=== PATIENT | female | born 1995 | race Caucasian/White ===

== ENCOUNTER 2016-12-04 10:37 | Emergency (ER) | payer OTHER ==
[~2016-12-04] VITALS: Ht 160 cm; Wt 52.0 kg
[~2016-12-04 10:37] MED LIST: METH5SOL3 PO
--- NOTE | 2016-12-04 11:19 | PD ---
HPI Chief Complaint: Related Problem Time Seen by Provider: 10:43 Travel History International Travel<30 days: No Contact w/Intl Traveler<30days: No Traveled to known affect area: No History of Present Illness HPI 21-year-old female at approximately 9 weeks based on LMP of mid September who presents the emergency department with complaint of back pain. Patient states that she has had 2-3 days of low, crampy pain in the back. This radiates slightly to the abdomen. No urinary symptoms. No vaginal bleeding, leakage of fluid. Patient does not recall having this pain with her first prompting ER visit. PFSH Past Medical History Medical History: Denies Significant Hx Diminished Hearing: No Tetanus Vaccination: Unknown Influenza Vaccination: No ?: LMP: 09/26/2016 Social History Alcohol Use: No Tobacco Use: Yes Substance Use: No (DENIES) Allergies-Medications (Allergen,Severity, Reaction): Coded Allergies: Penicillin (Verified Allergy, Unknown, 12/04/16) Reported Meds & Prescriptions Reported Meds & Active Scripts Active Macrobid (Nitrofurantoin Monoh/Nitrofur Macro) 100 Mg Cap 100 Mg PO BID Reported Methadone HCl 5 Mg/5 Ml Jacque 80 Mg PO DAILY Review of Systems Except as stated in HPI: all other systems reviewed are Neg Physical Exam Narrative GENERAL: Well-appearing female in no acute distress SKIN: Focused skin assessment warm/dry. HEAD: Normocephalic. EYES: No scleral icterus. No injection or drainage. ENT: Mucous membranes pink and moist. NECK: Supple CARDIOVASCULAR: Regular rate and rhythm. RESPIRATORY: No accessory muscle use. GASTROINTESTINAL: Abdomen soft, non-tender, nondistended. MUSCULOSKELETAL: Normal gait NEUROLOGICAL: Awake and alert. Normal speech. PSYCHIATRIC: Appropriate mood and affect; insight and judgment normal. Data Data Orders Ed Poc Ultrasound (12/04/16 ) Urinalysis - C+S If Indicated (12/04/16 11:04) Labs Laboratory Tests Test 12/04/16 11:05 Urine Color YELLOW Urine Turbidity HAZY Urine pH 6.5 Urine Specific [place] 1.027 Urine Protein TRACE mg/dL Urine Glucose (UA) NEG mg/dL Urine Ketones NEG mg/dL Urine Occult Blood NEG Urine Nitrite NEG Urine Bilirubin NEG Urine Urobilinogen LESS THAN 2.0 MG/DL Urine Leukocyte Esterase NEG Urine RBC 2 /hpf Urine WBC 2 /hpf Urine Squamous Epithelial 25 /hpf Cells Urine Bacteria OCC /hpf Urine Mucus FEW /lpf Microscopic Urinalysis Comment CULT NOT INDICATED MDM Medical Decision Making Medical Screen Exam Complete: Yes Emergency Medical Condition: Yes Medical Record Reviewed: Yes Differential Diagnosis 21-year-old here with complaint of low crampy back pain, proximal vein 9 weeks . Differential includes , ectopic , threatened AB, missed AB, UTI, low back pain. Narrative Course Bedside ultrasound shows IUP with heart rate measuring 8 weeks 0 days. Patient reassured. Urinalysis showed bacteria. We'll treat for home Procedures Procedure Narrative Emergency Department Pelvic ultrasound was performed with patient consent. The curvilinear probe was used in the transverse and sagittal views within the suprapubic region revealing an intrauterine . heart rate was 180s. See this measures 8 weeks 0 days by crown rump length. Diagnosis Primary Impression: Bacteria in urine Additional Impression: Low back pain Qualified Code: M54.5 - Bilateral low back pain without sciatica, unspecified chronicity Referrals: Boiler Out call for appointment Additional Instructions: Antibiotics as prescribed. Follow-up with SLEEP MANAGER to establish care for this . Med/Other Pt SpecificInfo: Prescription(s) given Scripts Nitrofurantoin Monohydrate Macrocrystals (Macrobid)100 Mg [id number] Mg PO BID #14 CAP Ref 0 Prov:Kae Valencia MD 12/04/16 Disposition: 01 DISCHARGE HOME Condition: Stable Kae Valencia MD December 04, 2016 11:19 Kae Valencia MD December 04, 2016 11:19
[2016-12-04 11:39] LABS: BACTERIA, URINE OCC /hpf; BLOOD, URINE NEG (NEG); COMMENT (UR) CULT NOT INDICATED; CULTURE IF INDICATED CULT NOT INDICATED; GLUCOSE,URINE NEG (NEG); KETONE, URINE NEG (NEG); MUCUS URINE FEW /lpf (OCC); NITRITE,URINE NEG (NEG); PH, URINE 6.5 (5.0-8.5); SQUAMOUS EPITHELIAL CELL URINE 25 /hpf (0-5); URINE COLOR YELLOW (YELLW/STRAW)
[2016-12-04] MEDS ORDERED: MACR100C2 PO (11:45)
== END 2016-12-04 11:50 | disposition home or self-care (01) ==
LOC: NEPD 10:37
DX: O26.891 Other specified pregnancy related conditions, first trimester (principal); O99.331 Smoking (tobacco) complicating pregnancy, first trimester; M54.5 Low back pain; Z3A.09 9 weeks gestation of pregnancy
CPT/HCPCS: 81001; 99283

== ENCOUNTER 2017-01-28 09:35 | Emergency (ER) | payer OTHER ==
[~2017-01-28 09:35] MED LIST changes: +MACR100C2 PO
[2017-01-28 09:36] VITALS: BP 109/90; PULSE 64; RESP 15; TEMP 97.8; O2SAT 100
[2017-01-28 10:45] VITALS: TEMP 97.9
[2017-01-28] MEDS ORDERED: PYRI25TA2 PO (11:22)
--- NOTE | 2017-01-28 11:22 | PD ---
HPI Chief Complaint cramping Date Seen: Jan 28, 2017 Time Seen: 10:45 (Fransico Hooks MD R1) Travel History International Travel<30 Days: No Contact w/Intl Traveler<30Days: No Known Affected Area: No (Fransico Hooks MD R1) History of Present Illness HPI 21 YO with LMP September 26 presents with 4 weeks of cramping and reported daily nausea with emesis. Pt has had no/little PNC. Previous c/b preeclampsia. Pt recently began smoking again 1 pack every 2/3 days. Denies CP, SOB, vaginal bleeding/discharge, dysuria and DVT pain. Para: 1 : 2 Last Menstrual Period: Sep 26, 2016 (Fransico Hooks MD) History Past Medical History Medical History: Denies Significant Hx (Fransico Hooks MD) Obstetric History Obstetric History preeclampsia in 1st (Fransico Hooks MD) Past Surgical History Surgical History: No Previous Surgery (Fransico Hooks MD) Family History Family History: Negative (Fransico Hooks MD) Social History Alcohol Use: No Tobacco Use: Yes (recently re-started at one pack every 2-3 days) Substance Abuse: No (admitted to nurse she used drugs when 16 YO) (Fransico Hooks MD R1) Allergies-Medications (Allergen,Severity, Reaction): Coded Allergies: Penicillin (Verified Allergy, Severe, Swelling, 01/28/17) states her throat swells Home Meds Active Scripts Pyridoxine 25 Mg Tab25 Mg PO QID PRN (NAUSEA OR VOMITING) #30 TAB Ref 0 Prov:Fransico Hooks MD R1 01/28/17 Nitrofurantoin Monohydrate Macrocrystals (Macrobid)100 Mg [id number] Mg PO BID #14 CAP Ref 0 Prov:Kae Valencia MD 12/04/16 Reported Medications Methadone Hcl (Methadone HCl)5 Mg/5 Ml Sol80 Mg PO DAILY 02/15/15 Review of Systems Except as stated in HPI: all other systems reviewed are Neg General / Constitutional: No: Fever, Weight Gain, Weight Loss, Chills, Other ( Fransico Hooks MD) Physical Exam Vital Signs Date Time Temp Pulse Resp B/P Pulse Ox O2 Delivery O2 Flow Rate FiO2 01/28/17 09:36 97.8 64 15 109/90 100 Narrative GENERAL: Well-nourished, well-developed patient. SKIN: Warm and dry. HEAD: Normocephalic and atraumatic. EYES: No scleral icterus. No injection or drainage. ENT: No nasal drainage noted. Mucous membranes pink. Airway patent. NECK: Supple, trachea midline. No JVD. CARDIOVASCULAR: Regular rate and rhythm without murmurs, gallops, or rubs. RESPIRATORY: Breath sounds equal bilaterally. No accessory muscle use. ABDOMEN/GI: Abdomen soft, non-tender, bowel sounds present, no rebound, no guarding Gravid to [17] weeks size Fundal Height: [16.5] GENITOURINARY: External Genitalia: intact and normal in appearance Speculum exam revealed a closed cervix w/o bleeding and scant white milky discharge FHT's: 150s EXTREMITIES: No cyanosis or edema. NEUROLOGICAL: Awake and alert. Motor and sensory grossly within normal limits. Five out of 5 muscle strength in all muscle groups. Normal speech. (Fransico Hooks MD R1) Data Data Orders Vital Signs (Adult) .ON ADMISSION (01/28/17 10:50) ^ Labor Status (01/28/17 10:50) Urinalysis - C+S If Indicated (01/28/17 10:50) Ob/Psych Drug Screen, Urine (01/28/17 10:50) Rubella Immune Status (01/28/17 10:50) Hepatitis Profile (01/28/17 10:50) Rapid Plasma Regin (Rpr) W Ttr (01/28/17 10:50) Type And Screen (01/28/17 10:50) Complete Blood Count With Diff (01/28/17 10:50) Hiv Antibody Screen (01/28/17 10:50) Us Ob Pelvis >14 Wks Fetus (01/28/17 ) (Fransico Hooks MD R1) MDM Medical Record Reviewed: Yes Narrative Course / MDM 24 YO at 17 weeks gestation and prior gestational hx of preeclampsia presents with abdominal cramping and nausea and FHTs in 150s. - OB US - screening - Encourage freq small meals and Samreen B6 for nausea and vomiting - Tylenol for cramping pain (Fransico Hooks MD R1) Diagnosis Diagnosis: Primary Impression: Nausea and vomiting during prior to 22 weeks gestation Disposition: 01 DISCHARGE HOME Condition: Good Scripts Pyridoxine 25 Mg Tab25 Mg PO QID PRN (NAUSEA OR VOMITING) #30 TAB Ref 0 Prov:Fransico Hooks MD R1 01/28/17 Collaborating MD Comments Agree with assessment and plan of care. (Namita Torres MD) Fransico Hooks MD R1 Jan 28, 2017 11:22 Namita Torres MD Jan 29, 2017 07:47
[2017-01-28 12:27] LABS: BACTERIA, URINE OCC /hpf; BLOOD, URINE NEG (NEG); COMMENT (UR) CULT NOT INDICATED; CULTURE IF INDICATED CULT NOT INDICATED; GLUCOSE,URINE NEG (NEG); KETONE, URINE NEG (NEG); MUCUS URINE FEW /lpf (OCC); NITRITE,URINE NEG (NEG); SQUAMOUS EPITHELIAL CELL URINE 4 /hpf (0-5); URINE COLOR LIGHT-YELLOW (YELLW/STRAW)
[2017-01-28 12:41] LABS: AMPHETAMINE, URINE NEG (NEG); BARBITURATES, URINE NEG (NEG); COCAINE, URINE NEG (NEG)
[2017-01-31 09:52] LABS: BATH SALTS (MDPV) UR NEG (NEG); ECSTASY (MDMA) UR NEG (NEG); GABAPENTIN UR NEG (NEG); HEROIN (6-ACETYLMORPHINE) UR NEG (NEG); HYDROMORPHONE U NEG (NEG); K2 SPICE UR NEG (NEG); OBMETHADONE UR NEG (NEG); OXYCODONE (PERCODAN) NEG (NEG); PHENCYCLIDINE URINE NEG (NEG)
== END 2017-01-28 12:03 | disposition home or self-care (01) ==
LOC: HOBED 09:35
DX: O21.9 Vomiting of pregnancy, unspecified (principal); O99.332 Smoking (tobacco) complicating pregnancy, second trimester; F17.210 Nicotine dependence, cigarettes, uncomplicated; Z3A.17 17 weeks gestation of pregnancy; Z79.899 Other long term (current) drug therapy
CPT/HCPCS: 36415; 76805; 80307; 81001; 99284; G0481

== ENCOUNTER 2018-01-06 18:02 | Emergency (ER) | payer OTHER ==
[~2018-01-06] VITALS: Ht 160 cm; Wt 55.0 kg
[~2018-01-06 18:02] MED LIST changes: +PYRI25TA2 PO
[2018-01-06 18:07] VITALS: BP 147/79; PULSE 115; RESP 18; TEMP 99; O2SAT 99
--- NOTE | 2018-01-06 18:18 | PD ---
HPI Chief Complaint: Psychiatric Symptoms Time Seen by Provider: 18:12 Travel History International Travel<30 days: No Contact w/Intl Traveler<30days: No Traveled to known affect area: No History of Present Illness HPI 22 YO F presents to the ED under Phillips Act for psychiatric evaluation. According to the BA the patient made suicidal threats on the Internet. Screen shots support this allegation. On presentation the patient is very anxious appearing. She is tearful. She denies SI or HI. She states that she is going through a custody zaragoza with her ex and made those statements in an attempt to hurt him. She denies previous psychiatric diagnosis, suicide attempt or psychiatric hospitalization. She denies somatic complaints. LMP 6/. Denies risk of . She denies headache, CP, cough, abdominal pain, N/V, dysuria , back pain. She endorses occasional alcohol use. She denies illicit drug use. She denies cigarette smoking. PFSH Past Medical History Diminished Hearing: No ?: Not Social History Alcohol Use: No Tobacco Use: Yes (recently re-started at one pack every 2-3 days) Substance Use: No (DENIES) Allergies-Medications (Allergen,Severity, Reaction): Coded Allergies: penicillin G (Unverified Allergy, Severe, Swelling, 02/26/17) states her throat swells Reported Meds & Prescriptions Reported Meds & Active Scripts Active Pyridoxine (Pyridoxine HCl) 25 Mg Tab 25 Mg PO QID PRN Macrobid (Nitrofurantoin Monoh/Nitrofur Macro) 100 Mg Cap 100 Mg PO BID Reported Methadone HCl 5 Mg/5 Ml Jacque 80 Mg PO DAILY Review of Systems Except as stated in HPI: all other systems reviewed are Neg Physical Exam Narrative GENERAL: Well-nourished, well-developed white female in no acute distress. PSYCH: Anxious, tearful. SKIN: Focused skin assessment warm/dry. Multiple small wounds of the skin noted. No signs of infection. HEAD: Normocephalic. EYES: No scleral icterus. No injection or drainage. NECK: Supple, trachea midline. No JVD or lymphadenopathy. CARDIOVASCULAR: Regular rate and rhythm without murmurs, gallops, or rubs. RESPIRATORY: Breath sounds clear and equal bilaterally. No accessory muscle use. GASTROINTESTINAL: Abdomen soft, non-tender, nondistended. Active bowel sounds. MUSCULOSKELETAL: No cyanosis, or edema. Walks with normal gait. BACK: Nontender without obvious deformity. No CVA tenderness. Data Data Last Documented VS Vital Signs Date Time Temp Pulse Resp B/P (MAP) Pulse Ox O2 Delivery O2 Flow Rate FiO2 01/06/18 18:07 99.0 115 18 147/79 (101) 99 Orders Orders Complete Blood Count With Diff (01/06/18 18:55) Comprehensive Metabolic Panel (01/06/18 18:55) Thyroid Stimulating Hormone (01/06/18 18:55) Urinalysis - C+S If Indicated (01/06/18 18:55) Ed Urine Pregnancytest Poc (01/06/18 18:55) Psych Screen (01/06/18 18:55) Drug Screen, Random Urine (01/06/18 18:55) Alcohol (Ethanol) (01/06/18 18:55) Diet Regular Basic (01/06/18 Dinner) MDM Medical Decision Making Medical Screen Exam Complete: Yes Emergency Medical Condition: Yes Differential Diagnosis Adjustment disorder versus anxiety versus bipolar versus depression versus dementia versus electrolyte disorder versus malingering versus mood disorder versus ODD versus psychosis versus PTSD versus schizophrenia versus schizoaffective disorder versus substance-induced mood disorder versus other Narrative Course 22-year-old female presents the ED under Phillips act for psychiatric evaluation. Per the PA the patient made suicidal and homicidal threats on the Internet against herself and her with whom she is in embroiled in a child custody zaragoza. On exam the patient is anxious, somewhat pressured speech. Tachycardic and hypertensive on presentation. Exam is reassuring. Basic lab work ordered and pending. Patient signed out to Dr. Carey at end of shift. Please see her note for disposition. Rosmery So Jan 06, 2018 18:18
--- NOTE | 2018-01-06 19:06 | PD ---
Physical Exam Narrative I, Dr. Carey, have reviewed the advance practice practitioner's documentation and am in agreement, met with the patient face to face, made the diagnosis, and the medical decision making was done by me. *My assessment and Findings: Anxiety vs. depression vs. anger issues 22yo F was brought in as Phillips Act because she texted her ex boyfriend and said she was going to kill herself and him. Pt said she was trying to make him feel bad and she is undergoing a custody zaragoza. Although pt denies any suicidal ideation now, pt is very anxious appearing and feel that pt may need to be here to calm down and be evaluated by psych since she seems emotionally labile. Labs reviewed, mild leukocytosis at 13.2. H/H normal. TSH low at 0.162. Will add free T3. CMP unremarkable. Utox positive opiates, cocaine, and cannabinoids. Alcohol negative. UA showed occasional bacteria but squamous is 25. Culture not indicated. Pt has no urinary complaints. Free T3 normal. negative. Pt is medically clear for psych evaluation. Data Data Last Documented VS Vital Signs Date Time Temp Pulse Resp B/P (MAP) Pulse Ox O2 Delivery O2 Flow Rate FiO2 01/07/18 11:22 01/07/18 06:21 86 16 99 Room Air 01/06/18 18:07 99.0 Orders Orders Complete Blood Count With Diff (01/06/18 18:55) Comprehensive Metabolic Panel (01/06/18 18:55) Thyroid Stimulating Hormone (01/06/18 18:55) Urinalysis - C+S If Indicated (01/06/18 18:55) Ed Urine Pregnancytest Poc (01/06/18 18:55) Psych Screen (01/06/18 18:55) Drug Screen, Random Urine (01/06/18 18:55) Alcohol (Ethanol) (01/06/18 18:55) Diet Regular Basic (01/06/18 Dinner) Free T3 (01/06/18 20:55) Bhcg Screen Qualitative (01/06/18 20:55) Diet Regular Basic (01/07/18 Breakfast) Labs Laboratory Tests Test 01/06/18 19:15 White Blood Count 13.2 TH/MM3 Red Blood Count 5.01 MIL/MM3 Hemoglobin 14.1 GM/DL Hematocrit 42.2 % Mean Corpuscular Volume 84.2 FL Mean Corpuscular Hemoglobin 28.1 PG Mean Corpuscular Hemoglobin Concent 33.4 % Red Cell Distribution Width 12.9 % Platelet Count 205 TH/MM3 Mean Platelet Volume 11.3 FL Neutrophils (%) (Auto) 75.5 % Lymphocytes (%) (Auto) 14.0 % Monocytes (%) (Auto) 9.8 % Eosinophils (%) (Auto) 0.4 % Basophils (%) (Auto) 0.3 % Neutrophils # (Auto) 10.0 TH/MM3 Lymphocytes # (Auto) 1.9 TH/MM3 Monocytes # (Auto) 1.3 TH/MM3 Eosinophils # (Auto) 0.1 TH/MM3 Basophils # (Auto) 0.0 TH/MM3 CBC Comment DIFF FINAL Differential Comment Urine Color Carine Urine Turbidity CLOUDY Urine pH 6.0 Urine Specific [place] 1.024 Urine Protein 30 mg/dL Urine Glucose (UA) NEG mg/dL Urine Ketones 20 mg/dL Urine Occult Blood NEG Urine Nitrite NEG Urine Bilirubin NEG Urine Urobilinogen 4.0 OR GREATER mg/dL Urine Leukocyte Esterase TRACE Urine RBC 3 /hpf Urine WBC 5 /hpf Urine Squamous Epithelial Cells 25 /hpf Urine Calcium Oxalate Crystals RARE /hpf Urine Bacteria OCC /hpf Urine Mucus MOD /lpf Microscopic Urinalysis Comment CULT NOT INDICATED Blood Urea Nitrogen 7 MG/DL Creatinine 0.81 MG/DL Random Glucose 88 MG/DL Total Protein 8.2 GM/DL Albumin 4.4 GM/DL Calcium Level 9.5 MG/DL Alkaline Phosphatase 68 U/L Aspartate Amino Transf (AST/SGOT) 53 U/L Alanine Aminotransferase (ALT/SGPT) 50 U/L Total Bilirubin 0.7 MG/DL Sodium Level 137 MEQ/L Potassium Level 3.5 MEQ/L Chloride Level 102 MEQ/L Carbon Dioxide Level 25.3 MEQ/L Anion Gap 10 MEQ/L Estimat Glomerular Filtration Rate 88 ML/MIN Free Triiodothyronine (T3) pg/dL 3.80 PG/ML Thyroid Stimulating Hormone 3rd Gen 0.162 uIU/ML Beta HCG, Qualitative LESS THAN 1 MIU/ML Urine Opiates Screen POS Urine Barbiturates Screen NEG Urine Amphetamines Screen NEG Urine Benzodiazepines Screen NEG Urine Cocaine Screen POS Urine Cannabinoids Screen POS Ethyl Alcohol Level LESS THAN 3 MG/DL [facility] Supervised Visit with CHASE: Yes Diagnosis Primary Impression: Suicidal ideation Mary Carey DO Jan 06, 2018 19:06
[2018-01-06 20:10] LABS: BASOPHIL % 0.3 % (0.0-2.0); EOSINOPHIL # 0.1 TH/MM3 (0-0.4); EOSINOPHIL % 0.4 % (0.0-4.0); HEMATOCRIT 42.2 % (35.0-46.0); HEMOGLOBIN 14.1 GM/DL (11.6-15.3); LYMPHOCYTE # 1.9 TH/MM3 (1.0-4.8); MEAN CELL VOLUME 84.2 FL (80.0-100.0); MEAN CORPUSCULAR HEMOGLOBIN 28.1 PG (27.0-34.0); MEAN CORPUSCULAR HGB CONC 33.4 % (32.0-36.0); MEAN PLATELET VOLUME 11.3 FL (7.0-11.0); MONO % 9.8 % (0.0-8.0); MONOCYTE # 1.3 TH/MM3 (0-0.9); NEUT % 75.5 % (16.0-70.0); PLATELET COUNT 205 TH/MM3 (150-450); RED BLOOD COUNT 5.01 MIL/MM3 (4.00-5.30); RED CELL DISTRIBUTION WIDTH 12.9 % (11.6-17.2); WHITE BLOOD COUNT 13.2 TH/MM3 (4.0-11.0)
[2018-01-06 20:23] LABS: ALBUMIN 4.4 GM/DL (3.4-5.0); AST (GOT) 53 U/L (15-37); BICARBONATE 25.3 MEQ/L (21.0-32.0); BLOOD UREA NITROGEN 7 MG/DL (7-18); CALCIUM 9.5 MG/DL (8.5-10.1); CHLORIDE 102 MEQ/L (98-107); CREATININE 0.81 MG/DL (0.50-1.00); GLOMERULAR FILTRATION RATE 88 ML/MIN (>89); GLUCOSE,RANDOM 88 MG/DL (74-106); SODIUM (NA) 137 MEQ/L (136-145)
[2018-01-06 20:26] LABS: BACTERIA, URINE OCC /hpf; BILIRUBIN, URINE NEG (NEG); BLOOD, URINE NEG (NEG); CALCIUM OXALATE CRYSTALS,URINE RARE /hpf; GLUCOSE,URINE NEG (NEG); KETONE, URINE 20 mg/dL (NEG); MUCUS URINE MOD /lpf (OCC); NITRITE,URINE NEG (NEG); SQUAMOUS EPITHELIAL CELL URINE 25 /hpf (0-5); URINE COLOR Amber (YELLW/STRAW); URINE LEUKOCYTE ESTERASE TRACE (NEG)
[2018-01-06 20:35] LABS: ALKALINE PHOSPHATASE 68 U/L (45-117); ALT (GPT) 50 U/L (10-53); TOTAL BILIRUBIN ADULT 0.7 MG/DL (0.2-1.0); TOTAL PROTEIN 8.2 GM/DL (6.4-8.2)
[2018-01-06 22:22] VITALS: BP 103/58; PULSE 84; RESP 16; O2SAT 99
[2018-01-07 06:21] VITALS: BP 102/60; PULSE 86; RESP 16; O2SAT 99
--- NOTE | 2018-01-07 11:15 | PD ---
History of Present Illness Chief Complaint: Psychiatric Symptoms Time Seen by Provider: 11:00 Travel History International Travel<30 Days: No Contact w/Intl Traveler<30days: No Known affected area: No Legal Status Legal Status: Phillips Act Phillips Act Signed By: Alma Morales History of Present Illness: History of Present Illness HPI 22 year old , female with no reported psychiatric history presents to the ED under Phillips Act for psychiatric evaluation. According to the BA the patient's ex-boyfriend called the police to report Facebook messages posted by the patient that eluded to her being suicidal. The responding officer took shots of the messages and according to the officer the patient made several threats to kill herself and harm the receiving green party. The patient did not make any attempts to harm herself. She was monitored in secure environment and did not present any suicidality or behavioral concerns. EMR. No previous contact with [facility] psychiatry. Current toxicology is positive for opiates, cocaine adn cannabinoids. She denies that she uses these substances on a daily basis but rather " I green party sometimes". Patient is seen. Alert, oriented, engaging. Anxious. She is worried because she has to be in court for a custody hearing later today. Speech is clear, logical, normal rate and tone. No psychosis, no andrew or hypomania. Denies any suicidal or homicidal ideation, intent or plan. States that she sent the messages to her ex because "she wanted to hurt his feelings. It was a way of getting back at him since I know he still loves me". Denies that she had any intent of harming herself. Patient denies any previous psychiatric treatment. PFSH Past Medical History Medical History: Denies Significant Hx Diminished Hearing: No ?: Not Past Surgical History Surgical History: No Previous Surgery Psychiatric History Psychiatric History Hx Psychiatric Treatment: denies any History of Inpatient Treatment: No Guns or firearms in home: No Social History female. Has 2 children. Currently unemployed. Hx Alcohol Use: No Hx Tobacco Use: Yes (recently re-started at one pack every 2-3 days) Hx Substance Use: Yes Substance Use Type: Marijuana, Cocaine, Synth Opiates-Pain Pills Hx of Substance Use Treatment: No Family Psychiatric History Negative. Allergies-Medications (Allergen,Severity, Reaction): Coded Allergies: penicillin G (Unverified Allergy, Severe, Swelling, 02/26/17) states her throat swells Reported Meds & Prescriptions Reported Meds & Active Scripts Active Pyridoxine (Pyridoxine HCl) 25 Mg Tab 25 Mg PO QID PRN Macrobid (Nitrofurantoin Monoh/Nitrofur Macro) 100 Mg Cap 100 Mg PO BID Reported Methadone HCl 5 Mg/5 Ml Jacque 80 Mg PO DAILY Review of Systems Psychiatric: COMPLAINS OF: Anxiety Except as stated in HPI: all other systems reviewed are Neg Mental Status Examination Appearance: Appropriate, Disheveled Consciousness: Alert Orientation: x4 Motor Activity: Normal gait Speech: Unremarkable Language: Adequate Fund of Knowledge: Adequate Attention and Concentration: Adequate Memory: Unremarkable Mood: Appropriate Affect: Appropriate Thought Process & Associations: Intact, Logical, Goal directed Thought Content: Appropriate Hallucination Type: None Delusion Type: None Suicidal Ideation: No Suicidal Plan: No Suicidal Intention: No Homicidal Ideation: No Homicidal Plan: No Homicidal Intention: No Insight: Poor Judgment: Impulsive MDM Medical Decision Making Medical Record Reviewed: Yes Assessment/Plan History of Present Illness HPI 22 year old , female with no reported psychiatric history presents to the ED under Phillips Act for psychiatric evaluation. According to the BA the patient's ex-boyfriend called the police to report Facebook messages posted by the patient that eluded to her being suicidal. The responding officer took shots of the messages and according to the officer the patient made several threats to kill herself and harm the receiving green party. The patient did not make any attempts to harm herself. She was monitored in secure environment and did not present any suicidality or behavioral concerns. Patient admits to having sent the messages in order to get a reaction or to hurt her boyfriend and did not expect that she would be placed under a BA. She is requesting to be dischargde as she has a custody hearing later today. She presents no evidence of unstable mental illness. The BA is lifted. psychiatrically cleared for discharge from the ED. Orders Orders Complete Blood Count With Diff (01/06/18 18:55) Comprehensive Metabolic Panel (01/06/18 18:55) Thyroid Stimulating Hormone (01/06/18 18:55) Urinalysis - C+S If Indicated (01/06/18 18:55) Ed Urine Pregnancytest Poc (01/06/18 18:55) Psych Screen (01/06/18 18:55) Drug Screen, Random Urine (01/06/18 18:55) Alcohol (Ethanol) (01/06/18 18:55) Diet Regular Basic (01/06/18 Dinner) Free T3 (01/06/18 20:55) Bhcg Screen Qualitative (01/06/18 20:55) Diet Regular Basic (01/07/18 Breakfast) Results Vital Signs Date Time Temp Pulse Resp B/P (MAP) Pulse Ox O2 Delivery O2 Flow Rate FiO2 01/07/18 06:21 86 16 102/60 (74) 99 Room Air 01/06/18 22:22 84 16 103/58 (73) 99 Room Air 01/06/18 18:07 99.0 115 18 147/79 (101) 99 Laboratory Tests Test 01/06/18 19:15 White Blood Count 13.2 Red Blood Count 5.01 Hemoglobin 14.1 Hematocrit 42.2 Mean Corpuscular Volume 84.2 Mean Corpuscular Hemoglobin 28.1 Mean Corpuscular Hemoglobin Concent 33.4 Red Cell Distribution Width 12.9 Platelet Count 205 Mean Platelet Volume 11.3 Neutrophils (%) (Auto) 75.5 Lymphocytes (%) (Auto) 14.0 Monocytes (%) (Auto) 9.8 Eosinophils (%) (Auto) 0.4 Basophils (%) (Auto) 0.3 Neutrophils # (Auto) 10.0 Lymphocytes # (Auto) 1.9 Monocytes # (Auto) 1.3 Eosinophils # (Auto) 0.1 Basophils # (Auto) 0.0 CBC Comment DIFF FINAL Differential Comment Urine Color Carine Urine Turbidity CLOUDY Urine pH 6.0 Urine Specific [place] 1.024 Urine Protein 30 Urine Glucose (UA) NEG Urine Ketones 20 Urine Occult Blood NEG Urine Nitrite NEG Urine Bilirubin NEG Urine Urobilinogen 4.0 OR GREATER Urine Leukocyte Esterase TRACE Urine RBC 3 Urine WBC 5 Urine Squamous Epithelial Cells 25 Urine Calcium Oxalate Crystals RARE Urine Bacteria OCC Urine Mucus MOD Microscopic Urinalysis Comment CULT NOT INDICATED Blood Urea Nitrogen 7 Creatinine 0.81 Random Glucose 88 Total Protein 8.2 Albumin 4.4 Calcium Level 9.5 Alkaline Phosphatase 68 Aspartate Amino Transf (AST/SGOT) 53 Alanine Aminotransferase (ALT/SGPT) 50 Total Bilirubin 0.7 Sodium Level 137 Potassium Level 3.5 Chloride Level 102 Carbon Dioxide Level 25.3 Anion Gap 10 Estimat Glomerular Filtration Rate 88 Free Triiodothyronine (T3) pg/dL 3.80 Thyroid Stimulating Hormone 3rd Gen 0.162 Beta HCG, Qualitative LESS THAN 1 Urine Opiates Screen POS Urine Barbiturates Screen NEG Urine Amphetamines Screen NEG Urine Benzodiazepines Screen NEG Urine Cocaine Screen POS Urine Cannabinoids Screen POS Ethyl Alcohol Level LESS THAN 3 Diagnosis Primary Impression: Cocaine abuse Additional Impressions: Opiate abuse, continuous Cannabis abuse Ruled Out: Suicidal ideation Psychiatrically Cleared: Yes Med/ Other Pt Specific Info: No Meds Exist/No RX given Disposition: 01 DISCHARGE HOME Condition: Stable Problem Qualifiers Awilda Santos Jan 07, 2018 11:15
== END 2018-01-07 11:49 | disposition home or self-care (01) ==
LOC: NEPD 18:02 → NEPJ 01-07 11:49
DX: F14.10 Cocaine abuse, uncomplicated (principal); F11.10 Opioid abuse, uncomplicated; F12.10 Cannabis abuse, uncomplicated; F17.200 Nicotine dependence, unspecified, uncomplicated; R00.0 Tachycardia, unspecified; Z79.899 Other long term (current) drug therapy
CPT/HCPCS: 80053; 80307; 81001; 84443; 84481; 84703; 85025; 99284

== ENCOUNTER 2018-04-11 22:46 | Inpatient (IN) ==
[2018-04-12] MEDS ORDERED: Dexamethasone Inj 20 MG/5 ML Vial IV.PUSH ONE (00:17)
[2018-04-12] MEDS ORDERED: Clindamycin 900 mg/NS Premix 900 MG/50 ML PIGGYBACK IV.SIG ONE (00:22)
--- NOTE | 2018-04-12 00:50 | ED ---
HPI General Chief complaint: Respiratory Symptoms Stated complaint: sore throat Time Seen by Provider: 04/12/18 00:13 History of Present Illness HPI narrative: her throat is swelling and she is having painful swallowing as well as some difficulty with breathing.Patient 23-year-old female here 2 days ago and told she had an early appendicitis and was started on Keflex and then discharged. According to the note the patient was here for sore throat as well as abdominal pain. She had a CT abdomen pelvis as well as an ultrasound which were negative, she was diagnosed with streptococcal pharyngitis and started on Keflex she has a penicillin allergy. Patient states today she think she is having allergic reaction to the penicillin because no fevers no cough no congestion. Symptoms been severe, for the past few days, gradually worsening, associated signs symptoms in context as above. Related Data Home Medications Medication Instructions Recorded Confirmed sertraline [Zoloft] 50 mg PO DAILY 04/10/18 04/12/18 Previous Rx's Medication Instructions Recorded cephalexin [Keflex] 500 mg PO Q12H 10 Days #20 cap 04/10/18 Allergies Allergy/AdvReac Type Severity Reaction Status Date / Time penicillin G Allergy Severe Swelling Verified 04/11/18 23:19 Review of Systems ROS: all other systems reviewed are negative [facility] Medical History Medical History Patient denies medical problems (Acute) Surgical History Surgical History No history of previous surgery (Acute) Social History Social History Substance History: No History of Abuse Smoking Status: Current every day smoker Tobacco Type: Cigarettes How Often Do You Have a Drink Containing Alcohol: Never Recent Travel in [facility] within the Last 8 Weeks: No Recent Out of Country Travel within the Last 8 Weeks: No Immunization History Tetanus Immunization: >5 Years Hx Influenza Vaccine This Season: No Exam Narrative Exam Narrative: GENERAL: Well-developed well-nourished female appears very anxious, clearing her throat aggressively and yielding clear white sputum. SKIN: Focused skin assessment warm/dry. HEAD: Atraumatic. Normocephalic. EYES: Pupils equal and round. No scleral icterus. No injection or drainage. ENT: No nasal bleeding or discharge. Mucous membranes pink and moist. TMs are clear bilaterally, there is significant swelling about the left tonsil consistent with a peritonsillar abscess, uvula is deviated right, the right tonsil is visualized and is 3+ purulent drainage but no obvious abscess. Her airway certainly is small but she is able to swallow with some pain. She does have some voice change which could be consistent with hot potato voice. NECK: Trachea midline. No JVD. CARDIOVASCULAR: Regular rate and rhythm. No murmur appreciated. RESPIRATORY: No accessory muscle use. Clear to auscultation. Breath sounds equal bilaterally. GASTROINTESTINAL: Abdomen soft, non-tender, nondistended. Hepatic and splenic margins not palpable. MUSCULOSKELETAL: No obvious deformities. No clubbing. No cyanosis. No edema. NEUROLOGICAL: Awake and alert. No obvious cranial nerve deficits. Motor grossly within normal limits. Normal speech. PSYCHIATRIC: Appropriate mood and affect; insight and judgment normal. Course Initial Documented Vital Signs Temperature 98.7 F 04/11/18 23:19 Pulse Rate 110 H 04/11/18 23:19 Respiratory Rate 16 04/11/18 23:19 Blood Pressure 155/70 H 04/11/18 23:19 Last Documented Vital Signs Temperature 98.7 F 04/11/18 23:19 Pulse Rate 103 H 04/12/18 01:01 Respiratory Rate 22 04/12/18 01:01 Blood Pressure 128/66 04/12/18 01:01 Pulse Oximetry 100 04/12/18 01:01 Critical Care Time Critical Care Time: Yes Total Critical Care Time: 35 Attestation: Aggregate critical care time was 35 minutes. Time to perform other separately billable procedures was not included in the critical care time. My time did not include minutes spent treating any other patients simultaneously or on activities that did not directly contribute to the patient's treatment. The services I provided to this patient were to treat and/or prevent clinically significant deterioration that could result in: , disability, organ failure I provided critical care services requiring my management, as noted below: Chart data review, documentation time, medication orders and management, vital sign assessments/reviewing monitor data, ordering and reviewing lab tests, ordering and interpreting/reviewing x-rays and diagnostic studies, care of the patient and discussion of the patient with the admitting physicians. Medical Decision Making MDM Narrative Medical decision making narrative: Patient room in the emergency department, on my examination the patient is protecting her airway but has high likelihood of compromise in the near future. IV access was obtained, she was given 10 mg of Decadron, ciprofloxacin has been started, septic workup ensuing. She has a obvious peritonsillar abscess on the left side. CT is ensuing. Again she is able to clear her throat aggressively and continues to yield white sputum. She will be admitted and will require ICU admission for this patient. Patient observed in the ER, continues to protect airway. D/W Dr. Costello for admission and she agrees. CT is still pending. Medical Screen Exam Complete: Yes Emergency Medical Condition: Yes Differential Diagnosis Differential Diagnosis: Peritonsillar abscess, retropharyngeal abscess, strep throat, airway compromise. Lab Data Result diagrams: 04/12/18 00:35 04/12/18 00:35 Lab Results 04/12/18 04/12/18 Range/Units 00:35 00:35 WBC 11.8 H (4.0-11.0) th/mm3 RBC 5.15 (4.00-5.30) mil/mm3 Hgb 14.8 (11.6-15.3) gm/dL Hct 43.5 (35.0-46.0) % MCV 84.4 (80.0-100.0) fL MCH 28.8 (27.0-34.0) pg MCHC 34.1 (32.0-36.0) % RDW 14.6 (11.6-17.2) % Plt Count 179 (150-450) th/mm3 MPV 10.8 (7.0-11.0) fL Neut % (Auto) 70.0 (16.0-70.0) % Lymph % (Auto) 16.6 (9.0-44.0) % Wayne % (Auto) 10.8 H (0.0-8.0) % Eos % (Auto) 2.1 (0.0-4.0) % Baso % (Auto) 0.5 (0.0-2.0) % Neut # (Auto) 8.3 H (1.8-7.7) th/mm3 Lymph # (Auto) 2.0 (1.0-4.8) th/mm3 Wayne # (Auto) 1.3 H (0.0-0.9) th/mm3 Eos # (Auto) 0.2 (0.0-0.4) th/mm3 Baso # (Auto) 0.1 (0.0-0.2) th/mm3 WBC Differential . Differential Comment Auto diff final Lactic Acid 1.1 (0.4-2.0) mmol/L Imaging Data Radiologist's impression: Chest X-Ray 04/12/18 00:18 CONCLUSION: Mild increased density at the right base which may represent a mild area of consolidation/pneumonia. Discharge Plan Discharge Disposition Patient Disposition: 30 Still Patient Discharge Condition Condition: Stable Discharge Details Diagnosis: Abscess, peritonsillar, Acute airway obstruction Physicians Team ED Provider: Arie Aragon Primary Care Provider: UNKNOWN, Attending Provider: Miranda Costello Discharge Interventions Interventions: Vital Signs Last Done: 04/12/18 01:01 Status ED Status: Admitted Patient
[2018-04-12 00:54] LABS: Baso # (Auto) 0.1 th/mm3 (0.0-0.2); Baso % (Auto) 0.5 % (0.0-2.0); Eos # (Auto) 0.2 th/mm3 (0.0-0.4); Eos % (Auto) 2.1 % (0.0-4.0); Hematocrit 43.5 % (35.0-46.0); Hemoglobin 14.8 gm/dL (11.6-15.3); Lymph % (Auto) 16.6 % (9.0-44.0); Mean Corpuscular HGB Conc 34.1 % (32.0-36.0); Mean Corpuscular Hemoglobin 28.8 pg (27.0-34.0); Mean Corpuscular Volume 84.4 fL (80.0-100.0); Mean Platelet Volume 10.8 fL (7.0-11.0); Mono # (Auto) 1.3 th/mm3 (0.0-0.9); Mono % (Auto) 10.8 % (0.0-8.0); Neut # (Auto) 8.3 th/mm3 (1.8-7.7); Platelet Count 179 th/mm3 (150-450); Red Blood Count 5.15 mil/mm3 (4.00-5.30); Red Cell Distribution Width 14.6 % (11.6-17.2); White Blood Count 11.8 th/mm3 (4.0-11.0)
--- NOTE | 2018-04-12 01:25 | XR ---
EXAM DATE: 04/12/2018 12:18 AM EDT AGE/SEX: 23 years / Female INDICATIONS: Fever. Shortness of breath. CLINICAL DATA: This is the patient's initial encounter. Patient reports that signs and symptoms have been present for 3 days and indicates a pain score of 0/10. MEDICAL/SURGICAL HISTORY: . Smoker. None. COMPARISON: No prior exams available for comparison. FINDINGS: The heart size is normal. There is mild increased density seen at the right base. The left lung appea rs clear. No effusion is seen. CONCLUSION: Mild increased density at the right base which may represent a mild area of consolidation/pneumonia. Electronically signed by: Felice Blanco MD 04/12/2018 1:24 AM EDT
[2018-04-12] MEDS ORDERED: Ketorolac Inj 30 MG/ML (IVP) Vial IV.PUSH ONE (01:59)
--- NOTE | 2018-04-12 02:07 | CT ---
EXAM DATE: 04/12/2018 1:49 AM EDT AGE/SEX: 23 years / Female INDICATIONS: Swollen throat, difficulty breathing, painful swallowing. CLINICAL DATA: This is the patient's initial encounter. Patient reports that signs and symptoms have been present for 1 day and indicates a pain score of 8/10. MEDICAL/SURGICAL HISTORY: None. None. RADIATION DOSE: 13.86 CTDI (mGy) COMPARISON: No prior exams available for comparison. TECHNIQUE: Helical acquisition was performed using a multirow detector CT scanner during the adminis tration of 55 ml Omnipaque 350 (iohexol) nonionic water-soluble contrast as a single exam dose. Usi ng automated exposure control and adjustment of the mA and/or kV according to patient size, radiation dose was kept as low as reasonably achievable to obtain optimal diagnostic quality images. DICOM fo rmat image data is available electronically for review and comparison. FINDINGS: Nasopharynx: The nasopharyngeal airway has a normal configuration. No mucosal thickening or mass is seen. Oropharynx: The intrinsic muscles of the tongue are symmetric. The tonsillar pillars appear promine nt. The prevertebral soft tissues are not thickened. Larynx: The supraglottic, glottic, and infraglottic structures are intact. Parapharyngeal: The parapharyngeal space is intact. Salivary Glands: The parotid and submandibular glands are intact. Lymph Nodes: There are prominent lymph nodes in the digastric regions measuring up to 1.3 cm on the left and 1.1 cm on the right. Thyroid: Homogeneous enhancement without evidence of nodule. Bones: Unremarkable. CONCLUSION: 1. The tonsils are prominent bilaterally. 2. Mild adenopathy in the digastric regions which may be reactive. Electronically signed by: Felice Blanco MD 04/12/2018 2:06 AM EDT
[2018-04-12 02:16] LABS: Alanine Aminotransferase 40 U/L (10-53); Albumin 4.3 g/dL (3.4-5.0); Anion Gap 11 meq/L (5-15); Aspartate Aminotransferase 27 U/L (15-37); Blood Urea Nitrogen 10 mg/dL (7-18); Chloride 102 meq/L (98-107); Glomerular Filtration Rate 80 mL/min (>89); Glucose,Random 97 mg/dL (74-106); Potassium 3.7 meq/L (3.5-5.1); Sodium 139 meq/L (136-145)
[2018-04-12 02:19] LABS: Alkaline Phosphatase 90 U/L (45-117)
--- NOTE | 2018-04-12 02:51 | P.HPCC ---
History of Present Illness Service: Critical care medicine Primary Care Physician: UNKNOWN Chief Complaint: Sorethroat, swelling History of Present Illness: 23-year-old female who presents to [facility] emergency department with 3-day history of sore throat. She was seen in the emergency department 04/10 and was given a prescription for Keflex. She states she has had 3 doses. She denies fever. She has changes in phonation and therefore admission to ICU has been requested for monitoring of airway. She has odynophagia but is able to swallow oral secretions. CT report indicates tonsillitis without abscess or epiglottis. She has received Decadron 10 mg IV, clindamycin 900 mg IV. - Diagnosis (1) Tonsillitis Inpatient Certification: I certify that the inpatient services were ordered in accordance with Medicare regulations governing the order. This includes certification that hospital inpatient services are reasonable and necessary and in the case of services not specified as inpatient-only under 42 CFR 419.22(n), that they are appropriately provided as inpatient services in accordance to with the 2-midnight benchmark under 43 CFR 412.3(e) Review of Systems All other systems reviewed negative except as stated in HPI PMFSH - History History Provided By: Patient - Medical History Medical History: Medical History (Last Updated 04/11/18 @ 23:21 by Lashonda Gregory) Patient denies medical problems - Surgical History Surgical History: Surgical History (Last Updated 04/11/18 @ 23:21 by Lashonda Gregory) No history of previous surgery - Family History Family History: Family History (Last Updated 04/12/18 @ 02:57 by Miranda Costello MD) Other No significant medical problems - Tobacco History Tobacco Use In Past 30 Days: Yes Smoking Status: Current every day smoker Tobacco Type: Cigarettes - Alcohol History How Often Do You Have a Drink Containing Alcohol: Never - Substance Use History Substance History: No History of Abuse - Travel History Recent Travel in the [place] Within the Last 8 Weeks: No Recent Travel Out of the Country Within the Last 8 Weeks: No - Immunization History Tetanus Immunization: >5 Years Hx Influenza Vaccine This Season: No Medications and Allergies Active Medications: Active Medications Dexamethasone Sodium Phosphate (Decadron Inj) 4 mg IV.PUSH Q6HR NIDIA Clindamycin/Sodium Chloride (Cleocin 600 Mg/Ns Premix) 600 mg in 50 mls @ 100 mls/hr IV.SIG Q8H NIDIA Allergies Allergy/AdvReac Type Severity Reaction Status Date / Time penicillin G Allergy Severe Swelling Verified 04/11/18 23:19 Home Medications Medication Instructions Recorded Confirmed Type sertraline [Zoloft] 50 mg PO DAILY 04/10/18 04/12/18 History Results - Labs CBC & Chem 7: 04/12/18 00:35 04/12/18 00:35 Labs: Short CBC 04/12/18 Range/Units 00:35 WBC 11.8 H (4.0-11.0) th/mm3 Hgb 14.8 (11.6-15.3) gm/dL Hct 43.5 (35.0-46.0) % Plt Count 179 (150-450) th/mm3 BMP 04/12/18 00:35 Sodium 139 Potassium 3.7 Chloride 102 Carbon Dioxide 26.0 BUN 10 Creatinine 0.87 Calcium 9.0 Liver Function 04/12/18 Range/Units 00:35 Total Bilirubin 0.3 (0.2-1.0) mg/dL AST 27 (15-37) U/L ALT 40 (10-53) U/L Alkaline Phosphatase 90 (45-117) U/L Albumin 4.3 (3.4-5.0) g/dL - Imaging Impressions Soft Tissue Neck CT 04/12/18 00:17 CONCLUSION: 1. The tonsils are prominent bilaterally. 2. Mild adenopathy in the digastric regions which may be reactive. Chest X-Ray 04/12/18 00:18 CONCLUSION: Mild increased density at the right base which may represent a mild area of consolidation/pneumonia. Exam Vital signs: Vital Signs 04/11/18 23:19 04/12/18 01:01 Temperature 98.7 F Pulse Rate 110 H 103 H Respiratory Rate 16 22 Blood Pressure 155/70 H 128/66 Pulse Oximetry 100 Intake & Output 04/11/18 04/11/18 04/12/18 06:59 18:59 06:59 Intake Total 50 / 50 Balance 50 / 50 Weight 54.431 kg Intake: IV 50 / 50 Cleocin 900 mg/NS Premix 900 mg 50 / 50 In 50 ml @ 100 mls/hr IV.SIG ONCE ONE Rx#:[id number] Narrative: GENERAL: Well-nourished, well-developed patient who is resting in the ED stretcher.. SKIN: Warm and dry, well-perfused. HEAD: Atraumatic. Normocephalic. EYES: Pupils equal and round, 2 mm reactive. No scleral icterus. No injection or drainage. ENT: No nasal bleeding or discharge. Mucous membranes pink and moist. Bilateral tonsils are enlarged with exudate, kissing the midline uvula. There is some surrounding pharyngeal edema. hot potato voice. No stridor. NECK: Trachea midline. No JVD. CARDIOVASCULAR: Regular rate and rhythm. No murmurs rubs or gallops. RESPIRATORY: No accessory muscle use. Clear to auscultation. Breath sounds equal bilaterally. On room air GASTROINTESTINAL: Abdomen soft, non-tender, nondistended. Bowel sounds present. Hepatic and splenic margins not palpable. MUSCULOSKELETAL: Extremities without clubbing, cyanosis, or edema. NEUROLOGICAL: Awake and alert.. No obvious cranial nerve deficits. Motor grossly within normal limits. Caprini VTE Risk Assessment Caprini VTE Risk Assessment: No/Low Risk (score <= 1) Caprini Risk Assessment Model: Point Value = 1 Point Value = 2 Point Value = 3 Point Value = 5 Age 41-60 Minor surgery BMI > 25 kg/m2 Swollen legs Varicose veins or History of unexplained or recurrent spontaneous Oral contraceptives or hormone replacement Sepsis (< 1 month) Serious lung disease, including pneumonia (< 1 month) Abnormal pulmonary function Acute myocardial infarction Congestive heart failure (< 1 month) History of inflammatory bowel disease Medical patient at bed rest Age 61-74 Arthroscopic surgery Major open surgery (> 45 min) Laparoscopic surgery (> 45 min) Malignancy Confined to bed (> 72 hours) Immobilizing plaster cast Central venous access Age >= 75 History of VTE Family history of VTE Factor V Leiden Prothrombin [id number] Lupus anticoagulant Anticardiolipin antibodies Elevated serum homocysteine Heparin-induced thrombocytopenia Other congenital or acquired thrombophilia Stroke (< 1 month) Elective arthroplasty Hip, pelvis, or leg fracture Acute spinal cord injury (< 1 month) Prophylaxis Regimen: Total Risk Factor Score Risk Level Prophylaxis Regimen 0-1 Low Early ambulation 2 Moderate Order ONE of the following: *Sequential Compression Device (SCD) *Heparin 5000 units SQ BID 3-4 Higher Order ONE of the following medications: *Heparin 5000 units SQ TID *Enoxaparin/Lovenox 40 mg SQ daily (WT < 150 kg, CrCl > 30 mL/min) *Enoxaparin/Lovenox 30 mg SQ daily (WT < 150 kg, CrCl > 10-29 mL/min) *Enoxaparin/Lovenox 30 mg SQ BID (WT < 150 kg, CrCl > 30 mL/min) AND/OR *Sequential Compression Device (SCD) 5 or more Highest Order ONE of the following medications: *Heparin 5000 units SQ TID (Preferred with Epidurals) *Enoxaparin/Lovenox 40 mg SQ daily (WT < 150 kg, CrCl > 30 mL/min) *Enoxaparin/Lovenox 30 mg SQ daily (WT < 150 kg, CrCl > 10-29 mL/min) *Enoxaparin/Lovenox 30 mg SQ BID (WT < 150 kg, CrCl > 30 mL/min) AND *Sequential Compression Device (SCD) Assessment and Plan - Problem List (1) Tonsillitis Code(s): J03.90 - Acute tonsillitis, unspecified Status: Acute - Assessment and Plan Plan: NEURO: Toradol 30 mg IV every 6 hours as needed for pain ENT: Tonsillitis Clindamycin 600 mg IV every 6 hours. Given Decadron 10 mg IV in the emergency department. Continue Decadron 4 mg IV every 6 hours. ENT consulted. RESP: Monitor airway CV: Monitor hemodynamics GI: Clear liquids FEN/RENAL: Voiding with normal creatinine. HEME: No acute hematologic issues ENDO: Euglycemic PROPH: SCDs for DVT prophylaxis, ambulation. ACCESS: Peripheral IV providing adequate access at this time Monitor in ICU. May be discharged later today if improving. Level 3 H&P
[2018-04-12] MEDS ORDERED: Bisacodyl 10 MG Supp RECTAL PRN (03:09)
[2018-04-12] MEDS ORDERED: Acetaminophen 325 MG Tablet PO PRN (03:09)
[2018-04-12] MEDS ORDERED: Chlorhexidine Gluconate 2% 1 Pack (2 Cloths) TOPICAL PRN (04:00)
[2018-04-12 04:20] LABS: Bilirubin,Urine Negative (Negative); Clarity,Urine Clear (Clear); Color,Urine Yellow (Yellw/Straw); Glucose,Urine (UA) Negative (Negative); Leukocyte Esterase,Urine Negative (Negative); Mucus,Urine Few /lpf (Occasional); Nitrite,Urine Negative (Negative); Squamous Epithelial Cell,Urine 3 /hpf (0-5)
[2018-04-12] MEDS: Chlorhexidine Gluconate 2% 1 Pack (2 Cloths) TOPICAL SCH (05:11)
[2018-04-12] MEDS ORDERED: CLINDAMYCIN PED IV.SIG SCH (07:00)
[2018-04-12] MEDS: Clindamycin 600 mg/NS Premix 600 MG/50 ML PIGGYBACK IV.SIG SCH ×3 (08:37→23:54)
[2018-04-12] MEDS: Senna/Docusate Sodium 8.6/50 MG Tablet PO SCH ×2 (08:40→21:27)
[2018-04-12] MEDS: Pantoprazole Inj 40 MG Vial IV.PUSH SCH (08:40)
[2018-04-12] MEDS: Ketorolac Inj 30 MG/ML (IVP) Vial IV.PUSH PRN ×3 (08:48→21:26)
--- NOTE | 2018-04-12 09:18 | ECG ---
Date Performed: 04/12/2018 Time Performed: 06:01:12 PTAGE: 23 years EKG: Sinus rhythm . Normal ECG NO PREVIOUS TRACING DOCTOR: Raz Roman Interpretating Date/Time 04/12/2018 09:17:12
[2018-04-13] MEDS: Chlorhexidine Gluconate 2% 1 Pack (2 Cloths) TOPICAL SCH (03:22)
[2018-04-13] MEDS: Ketorolac Inj 30 MG/ML (IVP) Vial IV.PUSH PRN (05:23)
[2018-04-13] MEDS: Pantoprazole Inj 40 MG Vial IV.PUSH SCH (08:01)
[2018-04-13] MEDS: Clindamycin 600 mg/NS Premix 600 MG/50 ML PIGGYBACK IV.SIG SCH (08:01)
[2018-04-13] MEDS: Senna/Docusate Sodium 8.6/50 MG Tablet PO SCH (08:01)
--- NOTE | 2018-04-13 08:35 | P.PN ---
Subjective Interval history: This is a pleasant 23 y/o female admitted with Diagnosis of acute tonsillitis, bacterial in nature, seen by ENT specialist recommended to continue Clindamycin will continue for 10 days, and follow as outpatient by PCP and ENT. Physical Exam Vital signs: Vital Signs 04/12/18 09:18 04/12/18 12:00 04/12/18 16:00 Temperature 96.4 F L 96.4 F L Pulse Rate 102 H 57 L Respiratory Rate 14 14 12 Blood Pressure 115/62 115/64 Pulse Oximetry 100 96 04/12/18 20:00 04/13/18 00:00 Temperature 97.7 F 97.9 F Pulse Rate 67 72 Respiratory Rate 16 16 Blood Pressure 99/51 L 95/50 L Pulse Oximetry 96 96 Intake & Output 04/12/18 04/13/18 04/13/18 18:59 06:59 18:59 Intake Total 100 / 100 530 / 530 Balance 100 / 100 530 / 530 Weight 55 kg Intake: IV 100 / 100 50 / 50 Cleocin 600 mg/NS Premix 600 mg 100 / 100 50 / 50 In 50 ml @ 100 mls/hr IV.SIG Q8H NIDIA Rx#:[id number] Oral 480 / 480 Other: # Voids 2 # Bowel Movements 1 Narrative: GENERAL: Well-nourished, well-developed, no acute distress dressed awaiting fo discharged once cleared by specialist. SKIN: Warm and dry HEAD: Atraumatic. Normocephalic. ENT: erythema and edema on tonsils. improving, some purulent tissue on right tonsil. NECK: Trachea midline. No JVD. RESPIRATORY: No accessory muscle use. MUSCULOSKELETAL: Extremities without clubbing, cyanosis, or edema. NEUROLOGICAL: Awake and alert. Results - Labs CBC & Chem 7: 04/12/18 00:35 04/12/18 00:35 - Imaging Soft Tissue Neck CT 04/12/18 00:17 CONCLUSION: 1. The tonsils are prominent bilaterally. 2. Mild adenopathy in the digastric regions which may be reactive. Chest X-Ray 04/12/18 00:18 CONCLUSION: Mild increased density at the right base which may represent a mild area of consolidation/pneumonia. Assessment and Plan - Plan 1. Tonsillitis status post clindamycin 600 mg IV q six hours, and Decadron 4 mg IV q six hours, at this time seen by ENT recommended outpatient antibiotics, will discharge at this time. PROPH: SCDs for DVT prophylaxis, ambulation Code Status: Full Code. Discussed Condition With: Patient and Nurse Miss Francisco. Discharge Planning: Discharge Home now.
--- NOTE | 2018-04-13 08:42 | P.DS ---
Date of admission: 04/12/18 01:07 Primary care physician: UNKNOWN Attending physician on discharge: Jordon Valiente Anticipated date of discharge: 04/13/18 Brief History from admission: 23-year-old female who presents to [facility] emergency department with 3-day history of sore throat. She was seen in the emergency department 04/10 and was given a prescription for Keflex. She states she has had 3 doses. She denies fever. She has changes in phonation and therefore admission to ICU has been requested for monitoring of airway. She has odynophagia but is able to swallow oral secretions. CT report indicates tonsillitis without abscess or epiglottis. She has received Decadron 10 mg IV, clindamycin 900 mg IV. DS: Diagnosis - Discharge Diagnosis (1) Tonsillitis Status: Acute DS: Summary Hospital Course: This is a pleasant 23 y/o female admitted with Diagnosis of acute tonsillitis, bacterial in nature, seen by ENT specialist recommended to continue Clindamycin will continue for 10 days, and follow as outpatient by PCP and ENT. Assessment and Plan - Plan 1. Tonsillitis status post clindamycin 600 mg IV q six hours, and Decadron 4 mg IV q six hours, at this time seen by ENT recommended outpatient antibiotics, will discharge at this time. on Clindamycin 300 mg by mouth every 8 hours and follow by PCP and ENT as outpatient. PROPH: SCDs for DVT prophylaxis, ambulation Code Status: Full Code. Discussed Condition With: Patient and Nurse Miss Francisco. Discharge Planning: Discharge Home now. - Time Spent with Patient Total time spent providing and/or coordinating discharge services: Less than 30 minutes - Quality: VTE Deep Vein Thrombosis/Pulmonary Embolism Present on Admission: No Exam Vital signs: Vital Signs 04/12/18 09:18 04/12/18 12:00 04/12/18 16:00 Temperature 96.4 F L 96.4 F L Pulse Rate 102 H 57 L Respiratory Rate 14 14 12 Blood Pressure 115/62 115/64 Pulse Oximetry 100 96 04/12/18 20:00 04/13/18 00:00 Temperature 97.7 F 97.9 F Pulse Rate 67 72 Respiratory Rate 16 16 Blood Pressure 99/51 L 95/50 L Pulse Oximetry 96 96 Intake & Output 04/12/18 04/13/18 04/13/18 18:59 06:59 18:59 Intake Total 100 / 100 530 / 530 Balance 100 / 100 530 / 530 Weight 55 kg Intake: IV 100 / 100 50 / 50 Cleocin 600 mg/NS Premix 600 mg 100 / 100 50 / 50 In 50 ml @ 100 mls/hr IV.SIG Q8H NIDIA Rx#:[id number] Oral 480 / 480 Other: # Voids 2 # Bowel Movements 1 Narrative: GENERAL: Well-nourished, well-developed, no acute distress dressed awaiting fo discharged once cleared by specialist. SKIN: Warm and dry HEAD: Atraumatic. Normocephalic. ENT: erythema and edema on tonsils. improving, some purulent tissue on right tonsil. NECK: Trachea midline. No JVD. RESPIRATORY: No accessory muscle use. MUSCULOSKELETAL: Extremities without clubbing, cyanosis, or edema. NEUROLOGICAL: Awake and alert. Results Procedures completed during hospitalization: None - Impressions ITS Impressions Soft Tissue Neck CT 04/12/18 00:17 CONCLUSION: 1. The tonsils are prominent bilaterally. 2. Mild adenopathy in the digastric regions which may be reactive. Chest X-Ray 04/12/18 00:18 CONCLUSION: Mild increased density at the right base which may represent a mild area of consolidation/pneumonia. Discharge Plan - Discharge Disposition Patient Disposition: 01 Discharge Home - Discharge Condition Condition: Good - Discharge Order Discharge Orders: Discharge Order (Routine); Ordered 04/13/18 Ordered By: Jordon Valiente - Discharge Details Anticipated Discharge Date: 04/13/18 Discharge Comment: Follow by PCP in 3 days - Physicians Team Primary Care Provider: UNKNOWN, Attending Provider: Jordon Valiente Other Providers: Vaughn Escoto MD
[2018-04-13 08:54] VITALS: BP 91/52; PULSE 56; RESP 18; TEMP 97.7; O2SAT 100
--- NOTE | 2018-04-13 20:32 | MD ---
cc: Vaughn Escoto MD DATE OF DISCHARGE: 04/13/2018 HOSPITAL COURSE: The patient is 23 years old. She has a history of a "peritonsillar abscess", was seen in the emergency room 3 or 4 days ago, given an antibiotic, and did not respond well and came back with worsening symptoms. PHYSICAL EXAMINATION: GENERAL: Physical exam today reveals a well-appearing, well-developed female in no acute distress. HEENT: Oral cavity clear with mild erythema of the tonsils bilaterally. Neck: Soft, supple. No masses noted. Nasal Exam: Mild septal deviation. Flexible Exam: Good vocal cord mobility, no edema. Excellent airway. IMPRESSION: A patient with acute tonsillitis. No peritonsillar abscess. Recommend continued therapy. May switch to p.o. and discharge at any time for followup in office. MD CAMPOS Solares/yasmany , 10:32 AM , 10:38 AM
== END 2018-04-13 09:00 | disposition home or self-care (01) ==
LOC: NEPD 22:46 → NEDA 04-12 01:07 → N03 04-12 03:45 → N07 04-12 17:17
PROVIDERS: ADMIT Internal Medicine; ATTEND Internal Medicine